=== PATIENT | female | born 1965 | race Caucasian/White ===

== ENCOUNTER 2018-08-25 13:45 | Emergency (ER) | payer MEDICAID, OTHER ==
[2018-08-25 14:11] VITALS: BP 131/85; PULSE 97; O2SAT 98
--- NOTE | 2018-08-25 14:21 | ERPHSYRPT ---
- History of Present Illness Time Seen by Provider: 08/25/18 14:15 Source: patient Exam Limitations: no limitations Patient Subjective Stated Complaint: pt reports rib injury in April resulting in 4 broken left ribs, states on 08/19 she reached over her grandchilds car seat and felt a "pop" and had severe pain. states she has left sided rib pain and is unable to sleep well or wear a bra. pt is concerned she has re injured her ribs. Triage Nursing Assessment: pt is aox3, pupils perrl, afebrile, resps easy and non labored, pt lung sounds are clear and equal throughout, radial pulses strong and equal, cap refill < 3 seconds, pt skin pink warm dry. no deformity noted to the left rib area. Physician History: 52 y/o white female presents with left side rib pain. pt was dx with left rib fx in Apr 2018. , pt lifted up child and felt a pop and severe pain. pt has had pain ever since. Timing/Duration: day(s) (6) Severity: mild Modifying Factors: Improves With: movement Associated Symptoms: denies symptoms Allergies/Adverse Reactions: hydromorphone Adverse Reaction (Verified 08/25/18 14:11) vomiting Hx Tetanus, Diphtheria Vaccination/Date Given: Yes Hx Influenza Vaccination/Date Given: No Hx Pneumococcal Vaccination/Date Given: No Immunizations Up to Date: Yes - Review of Systems Constitutional: No Symptoms Eyes: No Symptoms Ears, Nose, & Throat: No Symptoms Respiratory: No Symptoms Cardiac: No Symptoms Abdominal/Gastrointestinal: No Symptoms Genitourinary Symptoms: No Symptoms Musculoskeletal: Other (left ribs) Skin: No Symptoms Neurological: No Symptoms Psychological: No Symptoms Endocrine: No Symptoms Hematologic/Lymphatic: No Symptoms Immunological/Allergic: No Symptoms All Other Systems: Reviewed and Negative - Past Medical History Pertinent Past Medical History: Yes Neurological History: No Pertinent History ENT History: No Pertinent History Cardiac History: No Pertinent History Respiratory History: No Pertinent History Endocrine Medical History: No Pertinent History Musculoskeletal History: No Pertinent History GI Medical History: No Pertinent History History: No Pertinent History Psycho-Social History: No Pertinent History Female Reproductive Disorders: No Pertinent History, Endometriosis Other Medical History: seasonal allergies. swollen lymph nodes bilateral axilla - unknown cause - Past Surgical History Past Surgical History: Yes Neuro Surgical History: No Pertinent History Cardiac: No Pertinent History Respiratory: No Pertinent History Gastrointestinal: Hernia Repair Genitourinary: No Pertinent History Musculoskeletal: No Pertinent History Female Surgical History: Hysterectomy Other Surgical History: left breast lumpectomy - benign. colon polyps - benign. cryo surgery to cervix - stage 0 cervical cancer - Social History Smoking Status: Never smoker Drug Use: none Patient Lives Alone: Yes - Female History Hx Last Menstrual Period: hyst Hx Now: No - Nursing Vital Signs Nursing Vital Signs: Initial Vital Signs Temperature 98.3 F 08/25/18 13:55 Pulse Rate 97 H 08/25/18 13:55 Respiratory Rate 20 08/25/18 13:55 Blood Pressure 131/85 08/25/18 13:55 O2 Sat by Pulse Oximetry 98 08/25/18 13:55 Pain Scale Pain Intensity 10 - Physical Exam General Appearance: mild distress, alert, anxiety Eye Exam: PERRL/EOMI, eyes nml inspection Ears, Nose, Throat Exam: normal ENT inspection, moist mucous membranes Neck Exam: normal inspection, non-tender, supple Respiratory Exam: normal breath sounds, lungs clear, airway intact, other (rib tenderness), No respiratory distress, No rhonchi, No wheezing Cardiovascular Exam: regular rate/rhythm, normal heart sounds, normal peripheral pulses Pelvic Exam: not done Rectal Exam: not done Back Exam: normal inspection, normal range of motion, No CVA tenderness, No vertebral tenderness Extremity Exam: normal inspection, normal range of motion, No pelvis stable Neurologic Exam: alert, oriented x 3, cooperative, 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 Skin Exam: normal color, warm, dry Lymphatic Exam: No adenopathy SpO2 Interpretation: normal SpO2: 98 O2 Delivery: Room Air - Course Nursing assessment & vital signs reviewed: Yes Ordered Tests: Active Orders 24 hr Category Date Time Status CHEST 2 VIEWS (PA AND LAT) Stat Exams 08/25/18 14:19 Completed RIBS UNILATERAL Stat Exams 08/25/18 14:20 Completed Medication Summary Generic Name Dose Route Start Last Admin Trade Name Freq PRN Reason Stop Dose Admin Lorazepam 0.5 mg 08/25/18 15:17 Ativan 0.5 Mg PO 08/25/18 15:18 STAT ONE Ondansetron HCl 4 mg 08/25/18 15:16 Zofran Odt 4 Mg PO 08/25/18 15:17 STAT ONE Oxycodone/Acetaminophen 1 tab 08/25/18 15:16 Percocet Tablet 5/325mg PO 08/25/18 15:17 STAT STA Prednisone 10 mg 08/25/18 15:17 Deltasone 10 Mg PO 08/25/18 15:18 STAT ONE - Progress Progress: improved, pain not gone completely, re-examined Progress Note: 08/25/18 15:22 cxr- no acute process. left rib xray-healing old rib fx. no acuter fx Counseled pt/family regarding: diagnosis, need for follow-up, rad results - Departure Departure Disposition: Home Clinical Impression: Rib pain on left side Condition: Stable Critical Care Time: No Additional Instructions: follow up with primary doctor for further management of your pain. Prescriptions: Carisoprodol 350 mg [Soma 350 mg] 350 mg PO Q8H PRN PRN #10 tablet PRN Reason: Muscle Spasms Oxycodone HCl/Acetaminophen [Percocet 5-325 mg Tablet] 1 each PO Q8H PRN PRN # 10 tablet MDD 3 PRN Reason: Pain
--- NOTE | 2018-08-25 14:46 | XRAY ---
Indication: Pain. Comparison: June 15, 2018 from [facility]. 2 views of the left ribs demonstrates interval healing 4-10 rib fractures. No new bony, articular, or soft tissue abnormalities.
--- NOTE | 2018-08-25 14:48 | XRAY ---
Indication: Left rib pain. Comparison: Outside exam from [facility] dated April 23, 2018. PA/lateral chest again demonstrates normal heart and lungs. Bony thorax intact with healing left rib fractures reported separately.
[2018-08-25] MEDS ORDERED: PERCOCET TABLET 5/325MG PO STA (15:16)
[2018-08-25] MEDS ORDERED: ZOFRAN ODT 4 MG PO ONE (15:16)
[2018-08-25] MEDS ORDERED: DELTASONE 10 MG PO ONE (15:17)
[2018-08-25] MEDS ORDERED: Ativan 0.5 MG PO ONE (15:17)
[2018-08-25] MEDS ORDERED: DELTASONE 20 MG ONE (15:39)
[2018-08-25] MEDS ORDERED: ZOFRAN ODT 4 MG ONE (15:39)
[2018-08-25] MEDS ORDERED: PERCOCET TABLET 5/325MG ONE (15:39)
[2018-08-25] MEDS ORDERED: Ativan 1 MG ONE (15:40)
== END 2018-08-25 16:38 | disposition home or self-care (01) ==
LOC: ED 13:45
DX: R07.81 Pleurodynia (principal); X50.9XXA Other and unspecified overexertion or strenuous movements or postures, initial encounter
CPT/HCPCS: 71046; 71100; 99283; Q0162; A9270-GY

== ENCOUNTER 2019-09-12 10:11 | Day surgery (SDC) | payer OTHER ==
--- NOTE | 2019-09-12 09:09 | HP ---
DATE OF SURGERY: 09/12/2019 HISTORY OF PRESENT ILLNESS: The patient is a 53 year-old painful nodule increasing aches and pains right axilla, had some problems and was too painful to wear a bra according to the patient. She had CT scan did not show any obvious abnormalities in the groin. She had mammograms with benign findings, no obvious suspicious masses or adenopathy noted. She had some unchanged area of simple cyst and some unchanged area felt to be benign fibroadenoma that were unchanged. She had negative bilateral axillary ultrasound in the past. PAST MEDICAL HISTORY: Cervical cancer with cryotherapy in the past. Rheumatoid arthritis. Acid reflux. Anxiety. Asthma. Bipolar. Depression. Endometriosis. 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 PAST SURGICAL HISTORY: Right inguinal hernia repair in the past. She had hysterectomy and tubal in the past. Colonoscopy in the past. MEDICATIONS: Testosterone. Albuterol. Alendronate. Paroxetine. Multivitamin. Lamictal. Clonazepam. Vitamin D3. Calcium carbonate. Wellbutrin. Biotin. Adderall. Venlafaxine. ALLERGIES: DILAUDID. FAMILY HISTORY: Cancer. REVIEW OF SYSTEMS: Fourteen systems reviewed per admission assessment. No chest pain or palpitations. Other systems negative or noncontributory as above and per preadmission questionnaire. PHYSICAL EXAMINATION: GENERAL: No acute distress. HEENT: Sclerae nonicteric. NECK: No JVD. CHEST: Equal excursion, nonlabored breathing. CVS: Regular rate and rhythm. ABDOMEN: Soft. EXTREMITIES: No significant edema. NEURO: Alert, oriented, moving extremities symmetrically. No gross motor deficits noted. IMPRESSION: She has a large right axillary soft tissue mass whether lipoma or excessive breast tissue or other etiology is unclear that is causing increasing symptomatic aches and pains. She is offered excision. She understands general risk bleeding or infection, risk of hematoma or seroma formation or wound dehiscence possibly requiring packing. She understands she could have aches and pains, burning or numbness from the surgery itself that could be detention or chronic in nature. It may not bother her more than the current aches or pains. She understands if lipomatous density she could have other areas adjacent to or elsewhere down the road once she heals this wound.
[2019-09-12] MEDS ORDERED: Zemuron 100 MG/10 ML IV ONE (10:12)
[2019-09-12] MEDS ORDERED: KEFZOL 1 GM IV ONE (10:12)
[2019-09-12] MEDS ORDERED: Sensorcaine 0.25% 10 ML ONE (10:20)
[2019-09-12] MEDS ORDERED: Lactated Ringers 1,000 ML IV ONE ×2 (10:20→10:37)
[2019-09-12] MEDS ORDERED: Lactated Ringers 1,000 ML IV SCH (10:30)
[2019-09-12] MEDS ORDERED: TORAdol 30 mg Injection ONE ×2 (11:52→13:23)
[2019-09-12] MEDS ORDERED: DIPRIVAN 200 MG/20 ML IV ONE (11:52)
[2019-09-12] MEDS ORDERED: Zemuron 100 MG/10 ML ONE (11:52)
[2019-09-12] MEDS ORDERED: Zofran 4 MG/2 ML VIAL ONE (11:52)
[2019-09-12] MEDS ORDERED: Xylocaine-Mpf 2% 5 Ml Vial ONE (11:52)
[2019-09-12] MEDS ORDERED: Decadron 4 MG INJ ONE (11:52)
[2019-09-12] MEDS ORDERED: BRIDION 200MG/2ML IV ONE (11:52)
[2019-09-12] MEDS ORDERED: SUBLIMAZE 100 MCG/2 ML ONE ×2 (11:52→13:01)
[2019-09-12 14:12] VITALS: BP 135/80; PULSE 84; O2SAT 94
--- NOTE | 2019-09-13 11:18 | OP ---
SURGERY DATE/TIME: 09/12/2019 1154 PREOPERATIVE DIAGNOSIS: Enlarging symptomatic painful subcutaneous mass right axilla. POSTOPERATIVE DIAGNOSES: Enlarging symptomatic painful subcutaneous mass right axilla (lipomatous density). PROCEDURE: Excisional biopsy of symptomatic painful enlarging 10 cm lipomatous subcutaneous mass right axilla. SURGEON: Dr. Mendez Teixeira. ANESTHESIA: General. ESTIMATED BLOOD LOSS: Minimal. INDICATIONS: As noted above. She has enlarging painful subcutaneous mass unclear whether lipoma versus other accessory breast density or other issues that is causing increasing pain and enlarging in size. It was felt she would benefit from excision. Risks and benefits explained in detail including the fact that she is concerned about having excess skin, we informed that we would remove the ellipse of skin with the excision which would necessitate a longer incision. She understands the general risk of bleeding, infection, aches, pains, burning, numbness, risk of lymphedema, risk of burning or numbness possibly long-term or chronic in nature. Small risk of nerve irritation or scar formation, risk of weakness of shoulder or scapula possibly termination clerk or chronic in nature. General risk of hematoma, seroma, lymphedema, lymphocele formation but not limited to as well as possibility she could get other fatty density adjacent to or elsewhere on her body but not limited to as well as the risk of anesthesia, deep venous thrombosis, pulmonary embolism or pneumonia. Consent had been obtained. Questions had been answered in the preoperative area. The patient understood would have a longer incision if she wanted more of the skin excised over the top of this. Consent obtained. The site had been confirmed and marked with the patient. DESCRIPTION OF PROCEDURE AND FINDINGS: General anesthesia induced. The right axilla was prepped and draped in usual sterile fashion. After official time out and no disagreement with planned procedure, in a spindle-shaped fashion including the redundant skin over the top, dissection was carried down through the subcu. The skin subcu flaps mobilized around the subcutaneous lipomatous density around to the level of the axillary fascia. Small, little oozing bicycle inspector vein controlled with Ligaclips. This lipomatous density was dissected off the underlying fascia. It measured about 10 cm in size consistent with lipomatous density, final path pending. Good hemostasis noted. The wound irrigated out. Given the large potential space the JULIAN drain is placed through inferior stab wound, placed to bulb suction secured with PDS suture. The wound is then closed in layers with deep superficial subcu closed with 3-0 Vicryl trying to tack it down to the underlying fascia. The superficial subcu closed with 3-0 Vicryl, skin closed with 4-0 Vicryl, some Dermabond couple areas placed and also sterile dressing and pressure dressing. The patient tolerated the procedure well. There were no immediate complications. Findings discussed with the family out in the waiting area.
== END 2019-09-12 13:40 | disposition home or self-care (01) ==
LOC: SDC 10:11
PROVIDERS: ATTEND Surgery
DX: D17.21 Benign lipomatous neoplasm of skin and subcutaneous tissue of right arm (principal); Z85.41 Personal history of malignant neoplasm of cervix uteri; Z79.899 Other long term (current) drug therapy
CPT/HCPCS: 88304; J0690; J1100; J1885; J2405; J2704; J3010

== ENCOUNTER 2020-03-02 19:16 | Emergency (ER) | payer OTHER ==
[2020-03-02] MEDS ORDERED: TYLENOL EXTRA STRENGTH 500 MG PO STA (19:37)
[2020-03-02] MEDS ORDERED: MOTRIN 600 MG PO ONE (19:37)
[2020-03-02 19:41] VITALS: BP 139/86; PULSE 94; O2SAT 98
[2020-03-02] MEDS ORDERED: MOTRIN 600 MG ONE (19:48)
[2020-03-02] MEDS ORDERED: TYLENOL EXTRA STRENGTH 500 MG ONE (19:48)
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
== END 2020-03-02 21:03 | disposition home or self-care (01) ==
LOC: ED 19:16
DX: M25.512 Pain in left shoulder (principal); R07.81 Pleurodynia; V89.2XXA Person injured in unspecified motor-vehicle accident, traffic, initial encounter; Z79.899 Other long term (current) drug therapy
CPT/HCPCS: 71046; 73030; 99283; A9270-GY

== ENCOUNTER 2021-01-01 13:15 | Emergency (ER) | payer OTHER ==
--- NOTE | 2021-01-01 13:20 | ERPHSYRPT ---
- History of Present Illness Time Seen by Provider: 01/01/21 13:19 Source: patient Physician History: This is a 55-year-old white female who is transgendering into a male and prefers to be called Javad and presents with 2 to 3-day history of right facial numbness, numbness and trembling of his hands and painful sites on his head. He denies trauma. He denies new medications. He denies illicit drug use. There is been no specific stressors in his life except for in the last 2 weeks he has been trying to get a machine to aid in his sleep apnea. Patient has also not had his Klonopin for his anxiety issues. 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 Patient denies shortness of breath. He denies chest pain. He denies abdominal pain. He has had no nausea vomiting or diarrhea. Patient has a history of gastroesophageal reflux disease but has been off his medication for a month. He has history of ADD H, bipolar issues and depression. Timing/Duration: day(s) (2 to 3 days) Severity: mild (To moderate) Modifying Factors: Improves With: nothing Associated Symptoms: denies symptoms Allergies/Adverse Reactions: hydromorphone Adverse Reaction (Verified 03/02/20 19:21) Vomiting vomiting Home Medications: Albuterol 2 puff IH Q6HPRN PRN 09/02/19 [History] Alendronate Sodium 70 mg [Fosamax 70 MG] 70 mg PO Q7D@0600 09/02/19 [History] Calcium Carbonate/Vitamin D3 [Calcium 600Mg-D3 400 Unit Sfgl] 1 each PO BID [History] Diphenhydramine HCl 25 mg [Benadryl 25 mg Capsule] 25 mg PO Q4H PRN PRN 09/02/19 [History] Famotidine 20 mg [Pepcid 20 MG] 20 mg PO DAILY PRN PRN 09/02/19 [History] Hydroxyzine HCl 50 mg/ml [Vistaril 50 MG/ML] 50 mg IM TIDPRN PRN 09/02/19 [History] Lamotrigine [Lamictal] 150 mg PO BID 09/02/19 [History] Multivitamin [Multivitamins] 1 each PO DAILY 09/02/19 [History] Plecanatide [Trulance] 3 mg PO DAILY 09/02/19 [History] Testosterone Cypionate [Depo-Testosterone] 200 mg IM WEEKLY 09/02/19 [History] Venlafaxine HCl ER 75 mg [Effexor XR 75 MG] 75 mg PO DAILY 09/02/19 [History] buPROPion HCL [Bupropion Xl] 150 mg PO DAILY 09/02/19 [History] clonazePAM [Clonazepam] 1 mg PO TID 09/02/19 [History] Hx Tetanus, Diphtheria Vaccination/Date Given: Yes Hx Influenza Vaccination/Date Given: No Hx Pneumococcal Vaccination/Date Given: No Travel Risk - International Travel Have you traveled outside of the country in past 3 weeks: No - Coronavirus Screening Are you exhibiting any of the following symptoms?: No Close contact with a COVID-19 positive Pt in past 14-21 Days: No - Review of Systems Constitutional: No Symptoms Eyes: No Symptoms Ears, Nose, & Throat: No Symptoms Respiratory: No Symptoms Cardiac: No Symptoms Abdominal/Gastrointestinal: No Symptoms Genitourinary Symptoms: No Symptoms Musculoskeletal: No Symptoms Skin: No Symptoms Neurological: Parasthesia (Right side of his face and bilateral hands), Tremors (Bilateral hands) Psychological: Anxiety, Depression Endocrine: No Symptoms Hematologic/Lymphatic: No Symptoms Immunological/Allergic: No Symptoms All Other Systems: Reviewed and Negative - Past Medical History Pertinent Past Medical History: Yes Neurological History: No Pertinent History ENT History: No Pertinent History Cardiac History: No Pertinent History Respiratory History: Asthma Endocrine Medical History: No Pertinent History Musculoskeletal History: No Pertinent History GI Medical History: GERD History: No Pertinent History Psycho-Social History: Anxiety, Attention Deficit Disorder, Bipolar, Depression Female Reproductive Disorders: Cervical Cancer, Endometriosis Other Medical History: seasonal allergies. swollen lymph nodes bilateral axilla - unknown cause - Past Surgical History Past Surgical History: Yes Neuro Surgical History: No Pertinent History Cardiac: No Pertinent History Respiratory: No Pertinent History Gastrointestinal: Hernia Repair Genitourinary: No Pertinent History Musculoskeletal: No Pertinent History Female Surgical History: Hysterectomy, Tubal Ligation Other Surgical History: left breast lumpectomy - benign. colon polyps - benign. cryo surgery to cervix - stage 0 cervical cancer - Social History Smoking Status: Never smoker Exposure to second hand smoke: No Drug Use: none Patient Lives Alone: No - Nursing Vital Signs Nursing Vital Signs: Initial Vital Signs Temperature 97.8 F 01/01/21 13:22 Pulse Rate 99 H 01/01/21 13:22 Respiratory Rate 20 01/01/21 13:22 Blood Pressure 141/91 01/01/21 13:22 O2 Sat by Pulse Oximetry 99 01/01/21 13:22 Pain Scale Pain Intensity 0 - Physical Exam General Appearance: no apparent distress, alert, anxiety Eye Exam: PERRL/EOMI, eyes nml inspection, other (Bilateral eyelids close well. There is no evidence of classic Aldridge's palsy findings on either eyelid) Ears, Nose, Throat Exam: normal ENT inspection, moist mucous membranes, other (No facial droop noted) Neck Exam: normal inspection Respiratory Exam: normal breath sounds, lungs clear, airway intact, No chest tenderness, No respiratory distress Cardiovascular Exam: regular rate/rhythm, normal heart sounds, normal peripheral pulses Gastrointestinal/Abdomen Exam: soft, normal bowel sounds, No tenderness Pelvic Exam: not done Rectal Exam: not done Back Exam: normal inspection, normal range of motion, No CVA tenderness, No v ertebral tenderness Extremity Exam: normal inspection, normal range of motion, pelvis stable Neurologic Exam: alert, oriented x 3, cooperative, 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, nml cerebellar function, nml station & gait, sensation nml, No motor weakness, No facial droop, No slurred speech Skin Exam: normal color, warm, dry Lymphatic Exam: No adenopathy SpO2 Interpretation: normal O2 Delivery: Room Air - Course Nursing assessment & vital signs reviewed: Yes Ordered Tests: Active Orders 24 hr Category Date Time Status NPO (ED) STAT Care 01/01/21 13:47 Active HEAD WITHOUT CONTRAST [CT] Stat Exams 01/01/21 13:47 Completed CBC W DIFF Stat Lab 01/01/21 14:00 Completed CMP Stat Lab 01/01/21 14:00 Completed UA W/RFX UR CULTURE Stat Lab 01/01/21 15:25 Completed Medication Summary Discontinued Medications Generic Name Dose Route Start Last Admin Trade Name Freq PRN Reason Stop Dose Admin Lorazepam 1 mg 01/01/21 14:46 01/01/21 14:52 Ativan 2 Mg/1 Ml Vial IV 01/01/21 14:47 1 mg STAT ONE Administration Lorazepam Confirm 01/01/21 14:51 Ativan 2 Mg/1 Ml Vial Administered 01/01/21 14:52 Dose 2 mg .ROUTE .STK-MED ONE Lab/Rad Data: Laboratory Result Diagrams 01/01/21 14:00 01/01/21 14:00 Laboratory Results 01/01/21 01/01/21 01/01/21 Range/Units 15:25 14:00 14:00 WBC 7.1 (4.0-10.5) K/mm3 RBC 5.96 H (4.1-5.4) M/mm3 Hgb 17.2 H (12.0-16.0) gm/dl Hct 51.8 H (35-47) % MCV 86.9 (78-100) fl MCH 28.9 (26-32) pg MCHC 33.2 (32-36) g/dl RDW 13.7 (11.5-14.0) % Plt Count 290 (150-450) K/mm3 MPV 9.1 (7.5-11.0) fl Gran % 66.8 H (36.0-66.0) % Eos # (Auto) 0.36 (0-0.5) Absolute Lymphs (auto) 1.49 (1.0-4.6) Absolute Monos (auto) 0.50 (0.0-1.3) Lymphocytes % 21.0 L (24.0-44.0) % Monocytes % 7.0 (0.0-12.0) % Eosinophils % 5.1 H (0.00-5.0) % Basophils % 0.1 (0.0-0.4) % Absolute Granulocytes 4.75 (1.4-6.9) Basophils # 0.01 (0-0.4) Sodium 137 (137-145) mmol/L Potassium 4.4 (3.5-5.1) mmol/L Chloride 99 (98-107) mmol/L Carbon Dioxide 28 (22-30) mmol/L Anion Gap 15.2 H (5-15) MEQ/L BUN 18 H (7-17) mg/dL Creatinine 1.09 H (0.52-1.04) mg/dL Estimated GFR 55.8 ML/MIN Glucose 106 (74-106) mg/dL Calcium 9.1 (8.4-10.2) mg/dL Total Bilirubin 0.40 (0.2-1.3) mg/dL AST 34 (14-36) U/L ALT 38 H (0-35) U/L Alkaline Phosphatase 101 (38-126) U/L Serum Total Protein 8.0 (6.3-8.2) g/dL Albumin 4.7 (3.5-5.0) g/dL Urine Color YELLOW (YELLOW) Urine Appearance CLEAR (CLEAR) Urine pH 6.0 (5-6) Ur Specific [place] 1.009 (1.005-1.025) Urine Protein NEGATIVE (Negative) Urine Ketones NEGATIVE (NEGATIVE) Urine Blood SMALL (0-5) Hany/ul Urine Nitrite NEGATIVE (NEGATIVE) Urine Bilirubin NEGATIVE (NEGATIVE) Urine Urobilinogen NEGATIVE (0-1) mg/dL Ur Leukocyte Esterase SMALL (NEGATIVE) Urine WBC (Auto) 0-2 (0-5) /HPF Urine RBC (Auto) 0-2 (0-2) /HPF U Epithel Cells (Auto) NONE (FEW) /HPF Urine Bacteria (Auto) NONE (NEGATIVE) /HPF Urine Culture Reflexed NO (NO) Urine Glucose NEGATIVE (NEGATIVE) mg/dL - Progress Progress: improved Progress Note: 01/01/21 16:05 CAT scan of the head without contrast is normal Counseled pt/family regarding: lab results, diagnosis, need for follow-up, rad results - Departure Departure Disposition: Home Clinical Impression: Numbness, Anxiety Condition: Stable Critical Care Time: No Referrals: VIKTOR CALHOUN MD [Primary Care Provider] - Additional Instructions: Drink plenty of fluids. Take your medications as prescribed. Follow-up with your primary care physician tomorrow to fill any outstanding prescriptions.
[2021-01-01 14:06] LABS: Absolute Neutrophil Ct (ANC) 4.75 (1.4-6.9); BASOPHIL % 0.1 % (0.0-0.4); Basophil (Absolute #) 0.01 (0-0.4); Eosinophil % 5.1 % (0.00-5.0); Eosinophil (Absolute #) 0.36 (0-0.5); Hematocrit 51.8 % (35-47); Hemoglobin 17.2 gm/dl (12.0-16.0); Lymphocyte (Absolute #) 1.49 (1.0-4.6); Mean Cell Volume 86.9 fl (78-100); Mean Corpuscular Hemoglobin 28.9 pg (26-32); Mean Corpuscular Hgb Concent. 33.2 g/dl (32-36); Mean Platelet Volume 9.1 fl (7.5-11.0); Neutrophil % 66.8 % (36.0-66.0); Platelet Count 290 K/mm3 (150-450); Red Blood Count 5.96 M/mm3 (4.1-5.4); Red Cell Distribution Width 13.7 % (11.5-14.0); White Blood Count 7.1 K/mm3 (4.0-10.5)
[2021-01-01 14:27] LABS: ALBUMIN 4.7 g/dL (3.5-5.0); ANION GAP 15.2 MEQ/L (5-15); BILIRUBIN,TOTAL 0.4 mg/dL (0.2-1.3); Calcium 9.1 mg/dL (8.4-10.2); Creatinine 1 1.09 mg/dL (0.52-1.04); EST GLOMERULAR FILTRATION RATE 55.8 ML/MIN; Potassium 4.4 mmol/L (3.5-5.1)
--- NOTE | 2021-01-01 14:42 | XRAY ---
Indication: Right facial numbness. Bilateral ear pain. History of Aldridge's palsy. Multiple contiguous axial images obtained through the head without contrast. Comparison: None Normal appearing brain parenchyma, ventricles, and bony calvarium for patient's age. Visualized paranasal sinuses and mastoid air cells are clear. Impression: Normal CT head without contrast exam.
[2021-01-01] MEDS ORDERED: Ativan 2 MG/1 ML VIAL IV ONE (14:46)
[2021-01-01] MEDS ORDERED: Ativan 2 MG/1 ML VIAL ONE (14:51)
[2021-01-01 16:01] LABS: Appearance CLEAR (CLEAR); Bilirubin NEGATIVE (NEGATIVE); Blood SMALL Ery/ul (0-5); Glucose NEGATIVE (NEGATIVE); Ketones NEGATIVE (NEGATIVE); Leukocyte Esterase SMALL (NEGATIVE); Nitrite NEGATIVE (NEGATIVE); Protein,Urine Dip NEGATIVE (Negative); RBC 0-2 /HPF (0-2); Specific Gravity 1.009 (1.005-1.025); Urobilinogen NEGATIVE mg/dL (0-1); WBC 0-2 /HPF (0-5)
[2021-01-01 16:07] VITALS: BP 131/87; PULSE 86; O2SAT 97
== END 2021-01-01 16:20 | disposition home or self-care (01) ==
LOC: ED 13:15
DX: R20.2 Paresthesia of skin (principal); F41.9 Anxiety disorder, unspecified; Z79.899 Other long term (current) drug therapy; R25.1 Tremor, unspecified
CPT/HCPCS: 36415; 70450; 80053; 81001; 85025; 96374; 99284; J2060

== ENCOUNTER 2021-09-02 18:44 | Emergency (ER) | payer OTHER ==
--- NOTE | 2021-09-02 18:46 | ERPHSYRPT ---
- History of Present Illness Time Seen by Provider: 09/02/21 18:45 Historian: patient Physician History: This is a 55-year-old obese white male who is in the process of transitioning from a female and presents with multiple complaints including body aches and pains, vomiting yesterday, abdominal discomfort that is generalized, that began yesterday as well. Patient's daughter has been diagnosed with COVID-19 infection. Patient states she has had a fever but it was not measured. He does not have a cough. Patient is taking 3 antiseizure medications for psychiatric issues. There was a question of a seizure episode last week. Patient does have a history of bipolar disorder, depression, anxiety, tremors, and paresthesias Timing/Duration: yesterday Activities at Onset: none Abdominal Pain Onset Location: generalized abdomen Pain Radiation: no radiation Severity of Pain-Max: mild Severity of Pain-Current: mild Modifying Factors: Improves With: vomiting Associated Symptoms: nausea, vomiting Previous symptoms: no prior history Allergies/Adverse Reactions: hydromorphone Adverse Reaction (Verified 03/02/20 19:21) Vomiting vomiting Home Medications: Albuterol 2 puff IH Q6HPRN PRN 09/02/19 [History] Alendronate Sodium 70 mg [Fosamax 70 MG] 70 mg PO Q7D@0600 09/02/19 [History] Calcium Carbonate/Vitamin D3 [Calcium 600Mg-D3 400 Unit Sfgl] 1 each PO BID 09/02/19 [History] Diphenhydramine HCl 25 mg [Benadryl 25 mg Capsule] 25 mg PO Q4H PRN PRN 09/02/19 [History] Famotidine 20 mg [Pepcid 20 MG] 20 mg PO DAILY PRN PRN 09/02/19 [History] Hydroxyzine HCl 50 mg/ml [Vistaril 50 MG/ML] 50 mg IM TIDPRN PRN 09/02/19 [History] Multivitamin [Multivitamins] 1 each PO DAILY 09/02/19 [History] Plecanatide [Trulance] 3 mg PO DAILY 09/02/19 [History] Testosterone Cypionate [Depo-Testosterone] 200 mg IM WEEKLY 09/02/19 [History] Venlafaxine HCl ER 75 mg [Effexor XR 75 MG] 75 mg PO DAILY 09/02/19 [History] buPROPion HCL [Bupropion Xl] 150 mg PO DAILY 09/02/19 [History] clonazePAM [Clonazepam] 1 mg PO TID 09/02/19 [History] lamoTRIgine [Lamictal] 150 mg PO BID 09/02/19 [History] Hx Tetanus, Diphtheria Vaccination/Date Given: Yes Hx Influenza Vaccination/Date Given: No Hx Pneumococcal Vaccination/Date Given: No Travel Risk - International Travel Have you traveled outside of the country in past 3 weeks: No - Coronavirus Screening Are you exhibiting any of the following symptoms?: Yes Symptoms: Fever, Headaches/Body Aches/Fatigue Close contact with a COVID-19 positive Pt in past 14-21 Days: No - Vaccine Status Have you recieved a Covid-19 vaccination: No - Review of Systems Constitutional: Fever Eyes: No Symptoms Ears, Nose, & Throat: No Symptoms Respiratory: No Symptoms Cardiac: No Symptoms Abdominal/Gastrointestinal: Abdominal Pain, Nausea, Vomiting Genitourinary Symptoms: No Symptoms Musculoskeletal: Arthralgias, Myalgias Skin: No Symptoms Neurological: No Symptoms Psychological: No Symptoms Endocrine: No Symptoms Hematologic/Lymphatic: No Symptoms Immunological/Allergic: No Symptoms All Other Systems: Reviewed and Negative - Past Medical History Pertinent Past Medical History: Yes Neurological History: No Pertinent History ENT History: No Pertinent History Cardiac History: No Pertinent History Respiratory History: Asthma Endocrine Medical History: No Pertinent History Musculoskeletal History: No Pertinent History GI Medical History: GERD History: No Pertinent History Psycho-Social History: Anxiety, Attention Deficit Disorder, Bipolar, Depression Female Reproductive Disorders: Cervical Cancer, Endometriosis Other Medical History: seasonal allergies. swollen lymph nodes bilateral axilla - unknown cause - Past Surgical History Past Surgical History: Yes Neuro Surgical History: No Pertinent History Cardiac: No Pertinent History Respiratory: No Pertinent History Gastrointestinal: Hernia Repair Genitourinary: No Pertinent History Musculoskeletal: No Pertinent History Female Surgical History: Hysterectomy, Tubal Ligation Other Surgical History: left breast lumpectomy - benign. colon polyps - benign. cryo surgery to cervix - stage 0 cervical cancer - Social History Smoking Status: Never smoker Exposure to second hand smoke: No Drug Use: none Patient Lives Alone: No - Nursing Vital Signs Nursing Vital Signs: Initial Vital Signs Temperature 97.3 F 09/02/21 18:51 Pulse Rate 109 H 09/02/21 18:51 Respiratory Rate 20 09/02/21 18:51 Blood Pressure 112/79 09/02/21 18:51 O2 Sat by Pulse Oximetry 95 09/02/21 18:51 Pain Scale Pain Intensity 8 - Physical Exam General Appearance: no apparent distress, alert, anxiety, obese Eye Exam: PERRL/EOMI, eyes nml inspection Ears, Nose, Throat Exam: normal ENT inspection, moist mucous membranes Neck Exam: normal inspection, non-tender, supple, full range of motion Respiratory Exam: normal breath sounds, lungs clear, airway intact, No chest tenderness, No respiratory distress Cardiovascular Exam: tachycardia Gastrointestinal/Abdomen Exam: soft, normal bowel sounds, tenderness (Mild diffuse), No guarding, No rebound Pelvic Exam: not done Rectal Exam: not done Back Exam: normal inspection, normal range of motion, No CVA tenderness, No vertebral tenderness Extremity Exam: normal inspection, normal range of motion, pelvis stable Neurologic Exam: alert, oriented x 3, cooperative, 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, normal mood/affect, nml cerebellar function, nml station & gait, sensation nml Skin Exam: normal color, warm, dry Lymphatic Exam: No adenopathy SpO2 Interpretation: normal O2 Delivery: Room Air Ordered Tests: Active Orders 24 hr Category Date Time Status IV Insertion STAT Care 09/02/21 19:17 Active AMYLASE Stat Lab 09/02/21 19:00 Completed BLOOD CULTURE Stat Lab 09/02/21 19:50 Received CBC W DIFF Stat Lab 09/02/21 19:00 Completed CMP Stat Lab 09/02/21 19:00 Completed CULTURE,URINE Stat Lab 09/02/21 19:21 Received LIPASE Stat Lab 09/02/21 19:00 Completed [place] Screen Stat Lab 09/02/21 19:50 Completed UA W/RFX CULTURE Stat Lab 09/02/21 19:21 Completed Medication Summary Generic Name Dose Route Start Last Admin Trade Name Freq PRN Reason Stop Dose Admin Sodium Chloride 1,000 mls @ 999 mls/hr 09/02/21 20:25 09/02/21 20:34 Sodium Chloride 0.9% 1000 Ml IV 09/02/21 21:25 999 mls/hr .Q1H1M STA Administration Ceftriaxone Sodium/Dextrose 1 g in 50 mls @ 100 mls/hr 09/02/21 20:26 0 09/02/21 20:35 Rocephin 1 Gm-D5w 50 Ml Bag IV 09/02/21 20:55 100 ml/hr STAT STA 100 mls/hr Administration Discontinued Medications Generic Name Dose Route Start Last Admin Trade Name Shanita PRN Reason Stop Dose Admin Sodium Chloride 1,000 mls @ 999 mls/hr 09/02/21 19:17 09/02/21 20:24 Sodium Chloride 0.9% 1000 Ml IV 09/02/21 20:17 Infused .Q1H1M STA Infusion Sodium Chloride Confirm 09/02/21 19:20 Sodium Chloride 0.9% 1000 Ml Administered 09/02/21 19:21 Dose 1,000 mls @ ud .ROUTE .STK-MED ONE Sodium Chloride Confirm 09/02/21 20:30 Sodium Chloride 0.9% 1000 Ml Administered 09/02/21 20:31 Dose 1,000 mls @ ud .ROUTE .STK-MED ONE Ceftriaxone Sodium/Dextrose Confirm 09/02/21 20:30 Rocephin 1 Gm-D5w 50 Ml Bag Administered 09/02/21 20:31 Dose 1 g in 50 mls @ ud IV .STK-MED ONE Levofloxacin 500 mg 09/02/21 20:26 09/02/21 20:35 Levofloxacin 500 Mg Tablet PO 09/02/21 20:27 500 mg STAT ONE Administration Levofloxacin Confirm 09/02/21 20:30 Levofloxacin 500 Mg Tablet Administered 09/02/21 20:31 Dose 500 mg .ROUTE .STK-MED ONE Morphine Sulfate 4 mg 09/02/21 20:27 09/02/21 20:35 Morphine Sulfate 4 Mg/Ml Injection IV 09/02/21 20:28 4 mg STAT ONE Administration Morphine Sulfate Confirm 09/02/21 20:30 Morphine Sulfate 4 Mg/Ml Injection Administered 09/02/21 20:31 Dose 4 mg .ROUTE .STK-MED ONE Ondansetron HCl 4 mg 09/02/21 19:17 09/02/21 19:23 Ondansetron Hcl 4 Mg/2 Ml Vial IV 09/02/21 19:18 4 mg STAT ONE Administration Ondansetron HCl Confirm 09/02/21 19:20 Ondansetron Hcl 4 Mg/2 Ml Vial Administered 09/02/21 19:21 Dose 4 mg .ROUTE .STK-MED ONE Pantoprazole Sodium 40 mg 09/02/21 19:17 09/02/21 19:23 Pantoprazole 40 Mg Vial IV 09/02/21 19:18 40 mg STAT ONE Administration Pantoprazole Sodium Confirm 09/02/21 19:20 Pantoprazole 40 Mg Vial Administered 09/02/21 19:21 Dose 40 mg IV .STK-MED ONE Lab/Rad Data: Laboratory Result Diagrams 09/02/21 19:00 09/02/21 19:00 Laboratory Results 09/02/21 09/02/21 09/02/21 Range/Units 19:50 19:50 19:50 WBC (4.0-10.5) x10^3/uL RBC (4.1-5.4) x10^6/uL Hgb (12.0-16.0) g/dL Hct (35-47) % MCV (78-100) fL MCH (26-32) pg MCHC (32-36) g/dL RDW (11.5-14.0) % Plt Count (150-450) x10^3/uL MPV (7.5-11.0) fL Gran % (36.0-66.0) % Immature Gran % (Auto) (0.00-0.4) % Nucleat RBC Rel Count (0.00-0.1) % Eos # (Auto) (0-0.5) x10^3/uL Immature Gran # (Auto) (0.00-0.03) x10^3u/L Absolute Lymphs (auto) (1.0-4.6) x10^3/uL Absolute Monos (auto) (0.0-1.3) x10^3/uL Absolute Nucleated RBC (0.00-0.01) x10^3u/L Lymphocytes % (24.0-44.0) % Monocytes % (0.0-12.0) % Eosinophils % (0.00-5.0) % Basophils % (0.0-0.4) % Absolute Granulocytes (1.4-6.9) x10^3/uL Basophils # (0-0.4) x10^3/uL Sodium (137-145) mmol/L Potassium (3.5-5.1) mmol/L Chloride (98-107) mmol/L Carbon Dioxide (22-30) mmol/L Anion Gap (5-15) MEQ/L BUN (7-17) mg/dL Creatinine (0.52-1.04) mg/dL Estimated GFR ML/MIN Glucose (74-106) mg/dL Calcium (8.4-10.2) mg/dL Total Bilirubin (0.2-1.3) mg/dL AST (14-36) U/L ALT (0-35) U/L Alkaline Phosphatase (38-126) U/L Serum Total Protein (6.3-8.2) g/dL Albumin (3.5-5.0) g/dL Amylase (30-110) U/L Lipase (23-300) U/L Urinalys Dipstick Clnc Urine Color (YELLOW) Urine Appearance (CLEAR) Urine pH (5-6) Ur Specific [place] (1.005-1.025) POC Urine Protein Conf (Negative) Urine Ketones (NEGATIVE) Urine Nitrite (NEGATIVE) Urine Bilirubin (NEGATIVE) Urine Urobilinogen (0-1) mg/dL Urine Leukocytes (NEGATIVE) Urine WBC (Auto) (0-5) /HPF Urine RBC (Auto) (0-2) /HPF U Epithel Cells (Auto) (FEW) /HPF Urine Bacteria (Auto) (NEGATIVE) /HPF Urine RBC (0-5) Hany/ul Urine Mucus (Auto) (NEGATIVE) /HPF Ur Culture Indicated? Urine Glucose (NEGATIVE) mg/dL Monoscreen NEGATIVE (Negative) Influenza Type A Ag NEGATIVE (NEGATIVE) Influenza Type B Ag NEGATIVE (NEGATIVE) RSV (PCR) NEGATIVE (Negative) SARS-CoV-2 (PCR) NEGATIVE (NEGATIVE) Group A Strep Antibody NOT DETECTED (NEGATIVE) 09/02/21 09/02/21 09/02/21 Range/Units 19:21 19:00 19:00 WBC 10.3 (4.0-10.5) x10^3/uL RBC 6.15 H (4.1-5.4) x10^6/uL Hgb 17.8 H (12.0-16.0) g/dL Hct 53.6 H (35-47) % MCV 87.2 (78-100) fL MCH 28.9 (26-32) pg MCHC 33.2 (32-36) g/dL RDW 13.1 (11.5-14.0) % Plt Count 305 (150-450) x10^3/uL MPV 9.1 (7.5-11.0) fL Gran % 80.2 H (36.0-66.0) % Immature Gran % (Auto) 0.2 (0.00-0.4) % Nucleat RBC Rel Count 0.0 (0.00-0.1) % Eos # (Auto) 0.11 (0-0.5) x10^3/uL Immature Gran # (Auto) 0.02 (0.00-0.03) x10^3u/L Absolute Lymphs (auto) 1.34 (1.0-4.6) x10^3/uL Absolute Monos (auto) 0.53 (0.0-1.3) x10^3/uL Absolute Nucleated RBC 0.00 (0.00-0.01) x10^3u/L Lymphocytes % 13.0 L (24.0-44.0) % Monocytes % 5.2 (0.0-12.0) % Eosinophils % 1.1 (0.00-5.0) % Basophils % 0.3 (0.0-0.4) % Absolute Granulocytes 8.24 H (1.4-6.9) x10^3/uL Basophils # 0.03 (0-0.4) x10^3/uL Sodium 138 (137-145) mmol/L Potassium 4.4 (3.5-5.1) mmol/L Chloride 95 L (98-107) mmol/L Carbon Dioxide 32 H (22-30) mmol/L Anion Gap 15.3 H (5-15) MEQ/L BUN 15 (7-17) mg/dL Creatinine 1.23 H (0.52-1.04) mg/dL Estimated GFR 48.5 ML/MIN Glucose 143 H (74-106) mg/dL Calcium 9.8 (8.4-10.2) mg/dL Total Bilirubin 1.20 (0.2-1.3) mg/dL AST 172 H (14-36) U/L ALT 241 H (0-35) U/L Alkaline Phosphatase 162 H (38-126) U/L Serum Total Protein 7.8 (6.3-8.2) g/dL Albumin 4.6 (3.5-5.0) g/dL Amylase 2171 H (30-110) U/L Lipase 58906 H (23-300) U/L Urinalys Dipstick Clnc MAIN LAB Urine Color YELLOW (YELLOW) Urine Appearance SLIGHTLY CLOUDY (CLEAR) Urine pH 7.0 (5-6) Ur Specific [place] >=1.030 (1.005-1.025) POC Urine Protein Conf 100 (Negative) Urine Ketones TRACE (NEGATIVE) Urine Nitrite POSITIVE (NEGATIVE) Urine Bilirubin SMALL (NEGATIVE) Urine Urobilinogen 0.2 (0-1) mg/dL Urine Leukocytes SMALL (NEGATIVE) Urine WBC (Auto) 51-100 (0-5) /HPF Urine RBC (Auto) 3-5 (0-2) /HPF U Epithel Cells (Auto) RARE (FEW) /HPF Urine Bacteria (Auto) MODERATE (NEGATIVE) /HPF Urine RBC TRACE-INTACT (0-5) Hany/ul Urine Mucus (Auto) MANY (NEGATIVE) /HPF Ur Culture Indicated? YES Urine Glucose NEGATIVE (NEGATIVE) mg/dL Monoscreen (Negative) Influenza Type A Ag (NEGATIVE) Influenza Type B Ag (NEGATIVE) RSV (PCR) (Negative) SARS-CoV-2 (PCR) (NEGATIVE) Group A Strep Antibody (NEGATIVE) - Progress Progress: improved, pain not gone completely Counseled pt/family regarding: lab results, diagnosis, need for follow-up - Departure Departure Disposition: Home Clinical Impression: UTI (urinary tract infection) Condition: Stable Critical Care Time: No Referrals: VIKTOR CALHOUN MD [Primary Care Provider] - Follow up/PCP as directed Additional Instructions: Drink plenty of fluids. Take your antibiotics as prescribed. Follow-up with your primary care physician for further management. Prescriptions: Levofloxacin [Levaquin 500 MG Tablet] 500 mg PO DAILY #7 tablet
[2021-09-02] MEDS ORDERED: Sodium Chloride 0.9% 1000 ML 1,000 ML ONE ×2 (19:20→20:30)
[2021-09-02] MEDS ORDERED: PROTONIX 40 MG IV IV ONE (19:20)
[2021-09-02] MEDS ORDERED: Zofran 4 MG/2 ML VIAL ONE (19:20)
[2021-09-02] MEDS: PROTONIX 40 MG IV IV ONE (19:23)
[2021-09-02] MEDS: Zofran 4 MG/2 ML VIAL IV ONE (19:23)
[2021-09-02] MEDS: Sodium Chloride 0.9% 1000 ML 1,000 ML IV STA ×2 (19:23→20:34)
[2021-09-02 19:26] LABS: Absolute Neutrophil Ct (ANC) 8.24 x10^3/uL (1.4-6.9); Basophil (Absolute #) 0.03 x10^3/uL (0-0.4); Eosinophil % 1.1 % (0.00-5.0); Eosinophil (Absolute #) 0.11 x10^3/uL (0-0.5); Hematocrit 53.6 % (35-47); Hemoglobin 17.8 g/dL (12.0-16.0); Lymphocyte (Absolute #) 1.34 x10^3/uL (1.0-4.6); Mean Cell Volume 87.2 fL (78-100); Mean Corpuscular Hemoglobin 28.9 pg (26-32); Mean Corpuscular Hgb Concent. 33.2 g/dL (32-36); Mean Platelet Volume 9.1 fL (7.5-11.0); Monocyte (Absolute #) 0.53 x10^3/uL (0.0-1.3); Monocytes % 5.2 % (0.0-12.0); Neutrophil % 80.2 % (36.0-66.0); Platelet Count 305 x10^3/uL (150-450); Red Blood Count 6.15 x10^6/uL (4.1-5.4); Red Cell Distribution Width 13.1 % (11.5-14.0); White Blood Count 10.3 x10^3/uL (4.0-10.5)
[2021-09-02 19:37] LABS: ALBUMIN 4.6 g/dL (3.5-5.0); ANION GAP 15.3 MEQ/L (5-15); BILIRUBIN,TOTAL 1.2 mg/dL (0.2-1.3); Calcium 9.8 mg/dL (8.4-10.2); Creatinine 1 1.23 mg/dL (0.52-1.04); EST GLOMERULAR FILTRATION RATE 48.5 ML/MIN; Potassium 4.4 mmol/L (3.5-5.1); Total Protein 7.8 g/dL (6.3-8.2)
[2021-09-02 19:40] LABS: Bacteria MODERATE /HPF (NEGATIVE); Epithelial Cells RARE /HPF (FEW); Mucus MANY /HPF (NEGATIVE); WBC 51-100 /HPF (0-5)
[2021-09-02 19:42] LABS: Appearance SLIGHTLY CLOUDY (CLEAR); Bilirubin SMALL (NEGATIVE); Glucose NEGATIVE (NEGATIVE); Ketones TRACE (NEGATIVE); Nitrite POSITIVE (NEGATIVE); Protein,Urine Dip 100 (Negative); RBC TRACE-INTACT Ery/ul (0-5); Specific Gravity >=1.030 (1.005-1.025); Urine Cultured Indicated? YES; Urobilinogen 0.2 mg/dL (0-1)
[2021-09-02 19:43] LABS: Dipstick done @ ? MAIN LAB
[2021-09-02] MEDS ORDERED: ROCEPHIN 1 Gm-D5w 50 ml Bag** 1 G/50 ML IVPB IV ONE (20:30)
[2021-09-02] MEDS ORDERED: MORPHINE SULFATE 4 MG INJ ONE (20:30)
[2021-09-02] MEDS ORDERED: Levofloxacin 500 MG Tablet ONE (20:30)
[2021-09-02] MEDS: ROCEPHIN 1 Gm-D5w 50 ml Bag** 1 G/50 ML IVPB IV STA (20:35)
[2021-09-02] MEDS: Levofloxacin 500 MG Tablet PO ONE (20:35)
[2021-09-02] MEDS: MORPHINE SULFATE 4 MG INJ IV ONE (20:35)
[2021-09-02 20:39] LABS: INFLUENZA A NEGATIVE (NEGATIVE); INFLUENZA B NEGATIVE (NEGATIVE); RESPIRATORY SYNCTIAL VIRUS NEGATIVE (Negative); SARS-CoV-2 Xpert Express NEGATIVE (NEGATIVE)
[2021-09-02 21:19] VITALS: BP 124/87
[2021-09-02 22:04] VITALS: PULSE 87; O2SAT 94
[2021-09-02] MEDS ORDERED: CITROMA 296 ML ONE (22:13)
[2021-09-02] MEDS: CITROMA 296 ML PO ONE (22:14)
== END 2021-09-02 22:22 | disposition home or self-care (01) ==
LOC: ED 18:44
DX: N39.0 Urinary tract infection, site not specified (principal); R10.84 Generalized abdominal pain; M79.10 Myalgia, unspecified site; R11.2 Nausea with vomiting, unspecified; Z20.822 Contact with and (suspected) exposure to COVID-19
CPT/HCPCS: 0241U; 36000; 36415; 80053; 81015; 82150; 83690; 85025; 86308; 87040; 87086; 87651; 96374; 96375; 99284; J0696; J2270; J2405; A9270-GY

== ENCOUNTER 2021-11-07 15:08 | Emergency (ER) | payer OTHER ==
[2021-11-07] MEDS ORDERED: TYLENOL 325 MG PO ONE (15:52)
[2021-11-07] MEDS ORDERED: TYLENOL 325 MG ONE (16:25)
--- NOTE | 2021-11-07 16:35 | XRAY ---
Indication: Right rib pain following fall. Comparison: November 27, 2020 Portable chest demonstrates new bibasilar subsegmental atelectasis/scarring. Remaining heart and lungs unremarkable. Bony thorax intact again with old right posterior 6 rib fracture.
--- NOTE | 2021-11-07 16:35 | XRAY ---
Indication: Pain following fall. Comparison: None 2 view right ribs demonstrates old posterior 6 rib fracture. No other bony, articular, or soft tissue abnormalities. Chest reported separately.
--- NOTE | 2021-11-07 16:37 | XRAY ---
Indication: Pain following fall. Comparison: None 3 view right wrist obtained. No bony, articular, or soft tissue abnormalities.
--- NOTE | 2021-11-07 16:39 | XRAY ---
Indication: Bilateral hip pain following fall. Multiple contiguous axial images obtained through the pelvis with special attention to the osseous structures. Sagittal and coronal reformatted images obtained. Comparison: None No acute fracture, dislocation, or suspicious bony lesions. Left lesser trochanter demonstrates tiny heterotopic ossification either degenerative versus old injury. Visualized noncontrasted soft tissues are unremarkable. Visualized pelvis demonstrates hysterectomy and a few pelvic phleboliths. No free fluid/air. Impression: Negative CT pelvis.
--- NOTE | 2021-11-07 16:43 | ERPHSYRPT ---
- History of Present Illness Time Seen by Provider: 11/07/21 15:40 Source: patient Exam Limitations: no limitations Patient Subjective Stated Complaint: Patient rolled out of bed and hit a trunk next to her bed just a few hours prior to coming into the ED. She is c/o pain to her right wrist, right ribs, and bilateral hips. Triage Nursing Assessment: Patient is alert and oriented. CMS checks to right fingers WNL. Right radial pulse present. No SOB noted. No skin alterations noted to back, rib, or hip area. Physician History: Patient is a 56-year-old female presents to emergency department for evaluation of pain to both hips right ribs and right wrist. Patient states she was sleeping rolled off of her bed onto carpeted floor and wedged herself between a trunk on her bed. Injury occurred just prior to arrival. Pain described as an ache that is localized to the areas of involvement. The pain at the rib is at rib 6 7 and 8 laterally. Overlying soft tissue intact. No BHT or LOC. No neck pain. Cervical spine cleared clinically. Patient is conversant. Patient denies chest pain shortness of breath. No nausea vomiting or diaphoresis. No abdominal pain. Patient is ambulatory but uses her mother's walker because pain to both hips. Of note patient is currently transitioning and is on testosterone cypionate. Patient only wants Tylenol for pain control. Patient voices no other complaints or concerns at this time. Timing/Duration: today Severity: moderate Modifying Factors: Improves With: movement, acetaminophen Allergies/Adverse Reactions: hydromorphone Adverse Reaction (Verified 11/07/21 15:25) Vomiting vomiting Home Medications: Albuterol 2 puff IH Q6HPRN PRN 09/02/19 [History] Alendronate Sodium 70 mg [Fosamax 70 MG] 70 mg PO Q7D@0600 09/02/19 [History] Calcium Carbonate/Vitamin D3 [Calcium 600Mg-D3 400 Unit Sfgl] 1 each PO BID 09/02/19 [History] Diphenhydramine HCl 25 mg [Benadryl 25 mg Capsule] 25 mg PO Q4H PRN PRN 09/02/19 [History] Famotidine 20 mg [Pepcid 20 MG] 20 mg PO DAILY PRN PRN 09/02/19 [History] Hydroxyzine HCl 50 mg/ml [Vistaril 50 MG/ML] 50 mg IM TIDPRN PRN 09/02/19 [History] Multivitamin [Multivitamins] 1 each PO DAILY 09/02/19 [History] Plecanatide [Trulance] 3 mg PO DAILY 09/02/19 [History] Testosterone Cypionate [Depo-Testosterone] 200 mg IM WEEKLY 09/02/19 [History] Venlafaxine HCl ER 75 mg [Effexor XR 75 MG] 75 mg PO DAILY 09/02/19 [History] buPROPion HCL [Bupropion Xl] 150 mg PO DAILY 09/02/19 [History] clonazePAM [Clonazepam] 1 mg PO TID 09/02/19 [History] lamoTRIgine [Lamictal] 150 mg PO BID 09/02/19 [History] Hx Tetanus, Diphtheria Vaccination/Date Given: Yes Hx Influenza Vaccination/Date Given: No Hx Pneumococcal Vaccination/Date Given: No Immunizations Up to Date: Yes Travel Risk - International Travel Have you traveled outside of the country in past 3 weeks: No - Coronavirus Screening Are you exhibiting any of the following symptoms?: No Close contact with a COVID-19 positive Pt in past 14-21 Days: No - Vaccine Status Have you recieved a Covid-19 vaccination: No - Review of Systems Constitutional: No Symptoms, No Fever, No Chills Eyes: No Symptoms Ears, Nose, & Throat: No Symptoms Respiratory: No Symptoms, No Cough, No Dyspnea Cardiac: No Symptoms, No Chest Pain, No Edema, No Syncope Abdominal/Gastrointestinal: No Symptoms, No Abdominal Pain, No Nausea, No Vomiting, No Diarrhea Genitourinary Symptoms: No Symptoms, No Dysuria Musculoskeletal: No Symptoms, No Back Pain, No Neck Pain Skin: No Symptoms, No Rash Neurological: No Symptoms, No Dizziness, No Focal Weakness, No Sensory Changes Psychological: No Symptoms Endocrine: No Symptoms Hematologic/Lymphatic: No Symptoms Immunological/Allergic: No Symptoms All Other Systems: Reviewed and Negative - Past Medical History Pertinent Past Medical History: Yes Neurological History: No Pertinent History ENT History: No Pertinent History Cardiac History: No Pertinent History Respiratory History: Asthma Endocrine Medical History: No Pertinent History Musculoskeletal History: Fractures, Other GI Medical History: GERD History: No Pertinent History Psycho-Social History: Anxiety, Attention Deficit Disorder, Bipolar, Depression Female Reproductive Disorders: Cervical Cancer, Endometriosis Other Medical History: seasonal allergies, "weak bones" - Past Surgical History Past Surgical History: Yes Neuro Surgical History: No Pertinent History Cardiac: No Pertinent History Respiratory: No Pertinent History Gastrointestinal: Hernia Repair Genitourinary: No Pertinent History Musculoskeletal: No Pertinent History Female Surgical History: Hysterectomy, Tubal Ligation Other Surgical History: left breast lumpectomy - benign. colon polyps - benign. cryo surgery to cervix - stage 0 cervical cancer - Social History Smoking Status: Never smoker Exposure to second hand smoke: Yes Drug Use: none Patient Lives Alone: No - Nursing Vital Signs Nursing Vital Signs: Initial Vital Signs Temperature 97.5 F 11/07/21 15:33 Pulse Rate 96 H 11/07/21 15:33 Respiratory Rate 18 11/07/21 15:33 Blood Pressure 135/95 11/07/21 15:33 O2 Sat by Pulse Oximetry 96 11/07/21 15:33 Pain Scale Pain Intensity [] 10 Pain Intensity [] 10 Pain Intensity [] 10 Pain Intensity 7 - Physical Exam General Appearance: no apparent distress, alert Eye Exam: PERRL/EOMI, eyes nml inspection Ears, Nose, Throat Exam: normal ENT inspection, TMs normal, pharynx normal, moist mucous membranes Neck Exam: normal inspection, non-tender, supple, full range of motion Respiratory Exam: normal breath sounds, lungs clear, airway intact, other (Tenderness to palpation right ribs 6 7 and 8 overlying soft tissue intact. No signs of trauma.), No respiratory distress Cardiovascular Exam: regular rate/rhythm, normal heart sounds, normal peripheral pulses Gastrointestinal/Abdomen Exam: soft, normal bowel sounds, No tenderness, No mass Pelvic Exam: not done, other (Some tenderness to palpation at bilateral greater trochanters. No ecchymosis. No deformity. No swelling.) Back Exam: normal inspection, normal range of motion, No CVA tenderness, No vertebral tenderness Extremity Exam: normal inspection, normal range of motion, pelvis stable, other (Bilateral lower extremities neurovascular tact distally. Compartments are soft. Cap refill less than 2 seconds.) Neurologic Exam: alert, oriented x 3, cooperative, normal mood/affect, sensation nml, No motor deficits Skin Exam: normal color, warm, dry, No rash Lymphatic Exam: No adenopathy SpO2 Interpretation: normal SpO2: 96 O2 Delivery: Room Air - Course Nursing assessment & vital signs reviewed: Yes - Radiology Exams Wrist X-ray Interpretation: Teleradiologist Report (No fracture dislocations) Ribs X-ray Interpretation: Interpreted by me, Teleradiologist Report (Old posterior right rib fractures. No new acute fractures) Chest X-ray Interpretation: Teleradiologist Report (New bibasilar/subsegmental atele ctasis. Old right posterior rib fractures. Otherwise no acute findings) - CT Exams Pelvis CT Interpretation: Tele-radiologist Report (Negative CT pelvis) Ordered Tests: Active Orders 24 hr Category Date Time Status CHEST 1 VIEW (PORTABLE) Stat Exams 11/07/21 15:36 Completed PELVIS WITHOUT CONTRAST [CT] Stat Exams 11/07/21 15:36 Taken RIBS UNILATERAL Stat Exams 11/07/21 15:37 Completed WRIST (MIN 3 VIEWS) Stat Exams 11/07/21 15:44 Completed Medication Summary Discontinued Medications Generic Name Dose Route Start Last Admin Trade Name Shanita PRN Reason Stop Dose Admin Acetaminophen 975 mg 11/07/21 15:52 11/07/21 16:26 Acetaminophen 325 Mg Tablet PO 11/07/21 15:53 975 mg STAT ONE Administration Acetaminophen Confirm 11/07/21 16:25 Acetaminophen 325 Mg Tablet Administered 11/07/21 16:26 Dose 975 mg .ROUTE .STK-MED ONE - Progress Progress: improved Progress Note: Patient reassessed. Pain improved. Imaging studies negative. No fractures or dislocations observed. No indication for further work-up at this time. 11/07/21 16:49 No indication for additional work-up at this time. Will discharge home. Patient agrees to follow-up with primary care doctor within 48 hours for evaluation. Portions of this note were created with voice recognition technology. There may be grammatical, spelling, punctuation or sound alike errors 11/07/21 16:53 Patient understands that of right wrist pain does not resolve within a week's time she may require a repeat imaging study to reassess for fractures that may potentially be missed on today's x-ray. Patient placed in a right wrist splint for immobilization. 11/07/21 17:00 Counseled pt/family regarding: diagnosis, need for follow-up, rad results - Departure Departure Disposition: Home Clinical Impression: Fall, Contusion of rib on right side, Hip pain, Wrist sprain Condition: Stable Critical Care Time: No Referrals: VIKTOR CALHOUN MD [Primary Care Provider] - Follow up/PCP as directed Additional Instructions: Discharge/Care Plan NACHO YI was seen on 11/07/21 in the Emergency Room. The patient was counseled regarding Diagnosis,Lab results, Imaging studies, need for follow up and when to return to the Emergency Room. Prescriptions given: Discharge Note I have spoken with the patient and/or caregivers. I have explained the patient's condition, diagnosis and treatment plan based on the information available to me at this time. I have answered the patient's and/or caregiver's questions and addressed any concerns. The patient and/or caregivers have as good understanding of the patient's diagnosis, condition and treatment plan as can be expected at this point. The vital signs have been stable. The patient's condition is stable and appropriate for discharge from the emergency department. The patient will pursue further outpatient evaluation with the primary care physician or other designated or consulting physician as outlined in the discharge instructions. The patient and/or caregivers are agreeable to this plan of care and follow-up instructions have been explained in detail. The patient and/or caregivers have received these instruction. The patient/and or caregivers are aware that any significant change in condition or worsening of symptoms should prompt an immediate return to this or the closest emergency department or call 911.
[2021-11-07 17:09] VITALS: BP 134/76; PULSE 88; O2SAT 99
== END 2021-11-07 17:09 | disposition home or self-care (01) ==
LOC: ED 15:08
DX: S63.501A Unspecified sprain of right wrist, initial encounter (principal); S20.211A Contusion of right front wall of thorax, initial encounter; W06.XXXA Fall from bed, initial encounter; Y93.84 Activity, sleeping; Y92.003 Bedroom of unspecified non-institutional (private) residence as the place of occurrence of the external cause; M25.551 Pain in right hip; M25.552 Pain in left hip; R07.81 Pleurodynia; M25.531 Pain in right wrist; Z79.899 Other long term (current) drug therapy; Z28.310 Unvaccinated for COVID-19
CPT/HCPCS: 71045; 71100; 72192; 73110; 99283; L3908; A9270-GY

== ENCOUNTER 2021-12-01 03:29 | Emergency (ER) | payer OTHER ==
[2021-12-01] MEDS ORDERED: PROTONIX 40 MG IV IV ONE ×2 (03:46→04:21)
[2021-12-01] MEDS ORDERED: Reglan 10 MG/2 ML IV ONE (03:46)
[2021-12-01] MEDS ORDERED: MORPHINE SULFATE 4 MG INJ IV ONE (03:46)
--- NOTE | 2021-12-01 03:52 | ERPHSYRPT ---
<RENETTA ROSE - Last Filed: 12/01/21 06:21> - History of Present Illness Time Seen by Provider: 12/01/21 03:36 Historian: patient Exam Limitations: no limitations Patient Subjective Stated Complaint: pt states "I took medicine to make me poop around 5 o clock yesterday, it made my stomach cramp so bad and now its moved above my diaphragm." Triage Nursing Assessment: pt presents to ED thru [facility] ems, pt c/o of chest pain since last night rating pain 10/10, pt had 324 aspirin, 4 zofran, 2 nitros, pt has been taking testosterone for some time and states "I think I am at a higher chance of a heart attack." pt has hx of anxiety Physician History: 56-year-old female with history of anxiety, on testosterone was constipated and took laxative around 5 PM yesterday evening and since 7 PM started to have cramping in the lower abdomen and gradually moved to upper abdomen and later in the chest. Complaining of moderate to severe pain in the upper abdomen/retrosternal area/rib cage bilaterally sharp cramping without any significant aggravating or relieving factors. Reports having nausea but no vomiting. Also reports having shortness of breath. Denies any cough fever or chills. Patient received aspirin nitro in route to the ER with no relief at all. Timing/Duration: yesterday, gradual onset, worse Activities at Onset: rest Quality: sharpness Location: substernal Severity of Pain-Max: severe Severity of Pain-Current: severe Modifying Factors: Improves With: nothing Associated Symptoms: nausea, abdominal pain Prior Chest Pain/Cardiac Workup: no prior chest pain Nitro Today/Relief: 0.4 mg x 2, provided by EMS Aspirin Treatment Today: 81 mg x 4, provided by EMS Allergies/Adverse Reactions: hydromorphone Adverse Reaction (Verified 11/07/21 15:25) Vomiting vomiting Home Medications: Albuterol 2 puff IH Q6HPRN PRN 09/02/19 [History] Alendronate Sodium 70 mg [Fosamax 70 MG] 70 mg PO Q7D@0600 09/02/19 [History] Calcium Carbonate/Vitamin D3 [Calcium 600Mg-D3 400 Unit Sfgl] 1 each PO BID 09/02/19 [History] Diphenhydramine HCl 25 mg [Benadryl 25 mg Capsule] 25 mg PO Q4H PRN PRN 09/02/19 [History] Famotidine 20 mg [Pepcid 20 MG] 20 mg PO DAILY PRN PRN 09/02/19 [History] Hydroxyzine HCl 50 mg/ml [Vistaril 50 MG/ML] 50 mg IM TIDPRN PRN 09/02/19 [History] Multivitamin [Multivitamins] 1 each PO DAILY 09/02/19 [History] Plecanatide [Trulance] 3 mg PO DAILY 09/02/19 [History] Testosterone Cypionate [Depo-Testosterone] 200 mg IM WEEKLY 09/02/19 [History] Venlafaxine HCl ER 75 mg [Effexor XR 75 MG] 75 mg PO DAILY 09/02/19 [History] buPROPion HCL [Bupropion Xl] 150 mg PO DAILY 09/02/19 [History] Hx Tetanus, Diphtheria Vaccination/Date Given: Yes Hx Influenza Vaccination/Date Given: No Hx Pneumococcal Vaccination/Date Given: No Immunizations Up to Date: Yes Travel Risk - International Travel Have you traveled outside of the country in past 3 weeks: No - Coronavirus Screening Are you exhibiting any of the following symptoms?: No Close contact with a COVID-19 positive Pt in past 14-21 Days: No - Vaccine Status Have you recieved a Covid-19 vaccination: No - Review of Systems Constitutional: No Symptoms Eyes: No Symptoms Ears, Nose, & Throat: No Symptoms Respiratory: No Symptoms Cardiac: Chest Pain Abdominal/Gastrointestinal: Abdominal Pain, Nausea Genitourinary Symptoms: No Symptoms Musculoskeletal: No Symptoms Skin: No Symptoms Neurological: No Symptoms Psychological: No Symptoms Endocrine: No Symptoms Hematologic/Lymphatic: No Symptoms Immunological/Allergic: No Symptoms - Past Medical History Pertinent Past Medical History: Yes Neurological History: No Pertinent History ENT History: No Pertinent History Cardiac History: No Pertinent History Respiratory History: Asthma Endocrine Medical History: No Pertinent History Musculoskeletal History: Fractures, Other GI Medical History: GERD History: No Pertinent History Psycho-Social History: Anxiety, Attention Deficit Disorder, Bipolar, Depression Female Reproductive Disorders: Cervical Cancer, Endometriosis Other Medical History: seasonal allergies, "weak bones" - Past Surgical History Past Surgical History: Yes Neuro Surgical History: No Pertinent History Cardiac: No Pertinent History Respiratory: No Pertinent History Gastrointestinal: Hernia Repair Genitourinary: No Pertinent History Musculoskeletal: No Pertinent History Female Surgical History: Hysterectomy, Tubal Ligation Other Surgical History: left breast lumpectomy - benign. colon polyps - benign. cryo surgery to cervix - stage 0 cervical cancer - Social History Smoking Status: Never smoker Exposure to second hand smoke: Yes Drug Use: none Patient Lives Alone: No - Physical Exam General Appearance: no apparent distress, alert Eye Exam: PERRL/EOMI Ears, Nose, Throat Exam: normal ENT inspection, TMs normal, pharynx normal, moist mucous membranes Neck Exam: normal inspection, non-tender, supple, full range of motion Respiratory Exam: normal breath sounds, lungs clear Cardiovascular Exam: regular rate/rhythm, normal heart sounds Gastrointestinal/Abdomen Exam: normal bowel sounds, tenderness (Upper abdomen bilaterally), guarding Back Exam: normal inspection, normal range of motion Extremity Exam: normal inspection, normal range of motion Neurologic Exam: alert, oriented x 3, cooperative Skin Exam: normal color SpO2 Interpretation: normal SpO2: 97 O2 Delivery: Nasal Cannula - Progress Air Movement: good Progress Note: 12/01/21 06:13 12/01/21 06:17 Blood Culture(s) Obtained: No Counseled pt/family regarding: lab results, diagnosis, need for follow-up, rad results - Departure Clinical Impression: Pancreatitis Condition: Stable Critical Care Time: No <JONNY MONTERO - Last Filed: 12/01/21 08:36> - Nursing Vital Signs Nursing Vital Signs: Initial Vital Signs Temperature 97.1 F 12/01/21 03:33 Pulse Rate 105 H 12/01/21 03:33 Respiratory Rate 18 12/01/21 03:33 Blood Pressure 111/72 12/01/21 03:33 O2 Sat by Pulse Oximetry 97 12/01/21 03:33 Pain Scale Pain Intensity 4 Ordered Tests: Active Orders 24 hr Category Date Time Status EKG-ER Only STAT Care 12/01/21 03:46 Active IV Insertion STAT Care 12/01/21 03:46 Active NPO (ED) STAT Care 12/01/21 03:46 Active ABDOMEN AND PELVIS W CONTRAST [CT] Stat Exams 12/01/21 03:46 Completed CHEST WITH CONTRAST [CT] Stat Exams 12/01/21 03:47 Completed CBC W DIFF Stat Lab 12/01/21 04:16 Completed CMP Stat Lab 12/01/21 04:16 Completed LIPASE Stat Lab 12/01/21 04:16 Completed Lactic Acid Stat Lab 12/01/21 04:10 Completed Lactic Acid Stat Lab 12/01/21 06:19 Completed MAGNESIUM Stat Lab 12/01/21 04:16 Completed NT PRO BNP Routine Lab 12/01/21 04:16 Completed TROPONIN Q4H Lab 12/01/21 04:16 Completed TROPONIN Q4H Lab 12/01/21 08:28 Received TROPONIN Q4H Lab 12/01/21 12:00 Ordered UA W/RFX CULTURE Stat Lab 12/01/21 Ordered Medication Summary Discontinued Medications Generic Name Dose Route Start Last Admin Trade Name Freq PRN Reason Stop Dose Admin Sodium Chloride 1,000 mls @ 999 mls/hr 12/01/21 06:17 12/01/21 07:24 Sodium Chloride 0.9% 1000 Ml IV 12/01/21 07:17 Infused .Q1H1M STA Infusion Sodium Chloride Confirm 12/01/21 06:19 Sodium Chloride 0.9% 1000 Ml Administered 12/01/21 06:20 Dose 1,000 mls @ ud .ROUTE .STK-MED ONE Metoclopramide HCl 10 mg 12/01/21 03:46 12/01/21 04:23 Metoclopramide Hcl 10 Mg/2 Ml Vial IV 12/01/21 03:47 10 mg STAT ONE Administration Metoclopramide HCl Confirm 12/01/21 04:22 Metoclopramide Hcl 10 Mg/2 Ml Vial Administered 12/01/21 04:23 Dose 10 mg .ROUTE .STK-MED ONE Morphine Sulfate 4 mg 12/01/21 03:46 12/01/21 04:24 Morphine Sulfate 4 Mg/Ml Injection IV 12/01/21 03:47 4 mg STAT ONE Administration Morphine Sulfate Confirm 12/01/21 04:22 Morphine Sulfate 4 Mg/Ml Injection Administered 12/01/21 04:23 Dose 4 mg .ROUTE .STK-MED ONE Pantoprazole Sodium 40 mg 12/01/21 03:46 12/01/21 04:23 Pantoprazole 40 Mg Vial IV 12/01/21 03:47 40 mg STAT ONE Administration Pantoprazole Sodium Confirm 12/01/21 04:21 Pantoprazole 40 Mg Vial Administered 12/01/21 04:22 Dose 40 mg IV .K-MED ONE Lab/Rad Data: Laboratory Result Diagrams 12/01/21 04:16 12/01/21 04:16 Laboratory Results 12/01/21 12/01/21 12/01/21 Range/Units 06:19 04:16 04:16 WBC (4.0-10.5) x10^3/uL RBC (4.1-5.4) x10^6/uL Hgb (12.0-16.0) g/dL Hct (35-47) % MCV (78-100) fL MCH (26-32) pg MCHC (32-36) g/dL RDW (11.5-14.0) % Plt Count (150-450) x10^3/uL MPV (7.5-11.0) fL Gran % (36.0-66.0) % Immature Gran % (Auto) (0.00-0.4) % Nucleat RBC Rel Count (0.00-0.1) % Eos # (Auto) (0-0.5) x10^3/uL Immature Gran # (Auto) (0.00-0.03) x10^3u/L Absolute Lymphs (auto) (1.0-4.6) x10^3/uL Absolute Monos (auto) (0.0-1.3) x10^3/uL Absolute Nucleated RBC (0.00-0.01) x10^3u/L Lymphocytes % (24.0-44.0) % Monocytes % (0.0-12.0) % Eosinophils % (0.00-5.0) % Basophils % (0.0-0.4) % Absolute Granulocytes (1.4-6.9) x10^3/uL Basophils # (0-0.4) x10^3/uL Sodium 135 L (137-145) mmol/L Potassium 3.9 (3.5-5.1) mmol/L Chloride 98 (98-107) mmol/L Carbon Dioxide 26 (22-30) mmol/L Anion Gap 14.3 (5-15) MEQ/L BUN 12 (7-17) mg/dL Creatinine 1.04 (0.52-1.04) mg/dL Estimated GFR 58.7 ML/MIN Glucose 123 H (74-106) mg/dL Lactic Acid 1.2 (0.4-2.0) Calcium 9.5 (8.4-10.2) mg/dL Magnesium 2.0 (1.6-2.3) mg/dL Total Bilirubin 2.60 H (0.2-1.3) mg/dL AST 295 H (14-36) U/L ALT 264 H (0-35) U/L Alkaline Phosphatase 158 H (38-126) U/L Troponin I < 0.012 (0.000-0.034) ng/mL NT-Pro-B Natriuret Pep 31.8 (0-900) pg/mL Serum Total Protein 7.4 (6.3-8.2) g/dL Albumin 4.5 (3.5-5.0) g/dL Lipase 31184 H (23-300) U/L 12/01/21 12/01/21 Range/Units 04:16 04:10 WBC 10.7 H (4.0-10.5) x10^3/uL RBC 5.61 H (4.1-5.4) x10^6/uL Hgb 15.8 (12.0-16.0) g/dL Hct 47.9 H (35-47) % MCV 85.4 (78-100) fL MCH 28.2 (26-32) pg MCHC 33.0 (32-36) g/dL RDW 13.8 (11.5-14.0) % Plt Count 319 (150-450) x10^3/uL MPV 8.9 (7.5-11.0) fL Gran % 77.5 H (36.0-66.0) % Immature Gran % (Auto) 0.5 H (0.00-0.4) % Nucleat RBC Rel Count 0.0 (0.00-0.1) % Eos # (Auto) 0.10 (0-0.5) x10^3/uL Immature Gran # (Auto) 0.05 H (0.00-0.03) x10^3u/L Absolute Lymphs (auto) 1.48 (1.0-4.6) x10^3/uL Absolute Monos (auto) 0.72 (0.0-1.3) x10^3/uL Absolute Nucleated RBC 0.00 (0.00-0.01) x10^3u/L Lymphocytes % 13.9 L (24.0-44.0) % Monocytes % 6.8 (0.0-12.0) % Eosinophils % 0.9 (0.00-5.0) % Basophils % 0.4 (0.0-0.4) % Absolute Granulocytes 8.26 H (1.4-6.9) x10^3/uL Basophils # 0.04 (0-0.4) x10^3/uL Sodium (137-145) mmol/L Potassium (3.5-5.1) mmol/L Chloride (98-107) mmol/L Carbon Dioxide (22-30) mmol/L Anion Gap (5-15) MEQ/L BUN (7-17) mg/dL Creatinine (0.52-1.04) mg/dL Estimated GFR ML/MIN Glucose (74-106) mg/dL Lactic Acid 2.4 H (0.4-2.0) Calcium (8.4-10.2) mg/dL Magnesium (1.6-2.3) mg/dL Total Bilirubin (0.2-1.3) mg/dL AST (14-36) U/L ALT (0-35) U/L Alkaline Phosphatase (38-126) U/L Troponin I (0.000-0.034) ng/mL NT-Pro-B Natriuret Pep (0-900) pg/mL Serum Total Protein (6.3-8.2) g/dL Albumin (3.5-5.0) g/dL Lipase (23-300) U/L - Progress Progress Note: 12/01/21 08:31 Assumed care of pt at 7:00AM shift change. Pt stable and resting comfortably. Pt accepted by Dr. Garvey at [facility]. [facility] unable to accept pt. 12/01/21 08:35 - Departure Departure Disposition: Transfer
[2021-12-01] MEDS ORDERED: Reglan 10 MG/2 ML ONE (04:22)
[2021-12-01] MEDS ORDERED: MORPHINE SULFATE 4 MG INJ ONE (04:22)
[2021-12-01 04:36] LABS: Absolute Neutrophil Ct (ANC) 8.26 x10^3/uL (1.4-6.9); Basophil (Absolute #) 0.04 x10^3/uL (0-0.4); Eosinophil % 0.9 % (0.00-5.0); Hematocrit 47.9 % (35-47); Hemoglobin 15.8 g/dL (12.0-16.0); Lymphocyte (Absolute #) 1.48 x10^3/uL (1.0-4.6); Lymphocytes % 13.9 % (24.0-44.0); Mean Cell Volume 85.4 fL (78-100); Mean Corpuscular Hemoglobin 28.2 pg (26-32); Mean Platelet Volume 8.9 fL (7.5-11.0); Monocyte (Absolute #) 0.72 x10^3/uL (0.0-1.3); Monocytes % 6.8 % (0.0-12.0); Neutrophil % 77.5 % (36.0-66.0); Platelet Count 319 x10^3/uL (150-450); Red Blood Count 5.61 x10^6/uL (4.1-5.4); Red Cell Distribution Width 13.8 % (11.5-14.0); White Blood Count 10.7 x10^3/uL (4.0-10.5)
[2021-12-01 04:38] LABS: ALBUMIN 4.5 g/dL (3.5-5.0); ANION GAP 14.3 MEQ/L (5-15); BILIRUBIN,TOTAL 2.6 mg/dL (0.2-1.3); Calcium 9.5 mg/dL (8.4-10.2); Creatinine 1 1.04 mg/dL (0.52-1.04); EST GLOMERULAR FILTRATION RATE 58.7 ML/MIN; Potassium 3.9 mmol/L (3.5-5.1); Total Protein 7.4 g/dL (6.3-8.2)
[2021-12-01 04:49] LABS: NT PRO BNP 31.8 pg/mL (0-900); TROPONIN < 0.012 ng/mL (0.000-0.034)
[2021-12-01] MEDS ORDERED: Sodium Chloride 0.9% 1000 ML 1,000 ML IV STA (06:17)
[2021-12-01] MEDS ORDERED: Sodium Chloride 0.9% 1000 ML 1,000 ML ONE (06:19)
--- NOTE | 2021-12-01 08:01 | XRAY ---
Indication: Chest pain, short of breath, and nausea. Bilateral rib pain. Multiple contiguous axial images obtained through the chest using 100 cc Isovue-370 contrast and PE protocol. Comparison: None Good opacification of the pulmonary arteries to include the lobar and segmental branches. Mild respiration artifact limits evaluation for pulmonary embolus. No obvious pulmonary embolus. Heart not enlarged. Aorta is normal in course and caliber. Tiny distal paraesophageal calcified node. No pathologic mediastinal/hilar lymphadenopathy. Lungs demonstrates mild bibasilar subsegmental atelectasis/scarring. No suspicious pulmonary mass, infiltrate, effusion, or pneumothorax. Bony thorax intact. CT abdomen/pelvis reported separately. Impression: 1. Mild respiration artifact. 2. No pulmonary embolus or acute cardiopulmonary abnormalities. Comment: Preliminary interpretation made by [facility]. No critical discrepancy.
--- NOTE | 2021-12-01 08:05 | XRAY ---
Indication: Chest pain, short of breath, and nausea. Bilateral rib pain. Multiple contiguous axial images obtained through the abdomen and pelvis using 100 cc Isovue-370 contrast. Comparison: None CT chest reported separately. Stomach is fluid distended. Noncontrasted stomach and bowel loops appear nonobstructed with normal appendix. Several midabdomen small bowel loops are mildly fluid distended with synchronous fluid leveling favoring ileus. Pancreas appears diffusely enlarged with mild peripancreatic stranding favoring pancreatitis. Tiny free fluid presumed reactive but no walled off fluid collection or free air. Diffuse fatty liver and mild distended gallbladder. Remaining liver, gallbladder, spleen, adrenal glands, kidneys, ureters, bladder, and aorta are unremarkable. No pathologic retroperitoneal lymphadenopathy. Osseous structures intact. Impression: 1. CT findings favoring acute pancreatitis with mild reactive small bowel ileus. 2. Distended gallbladder. Sonogram may yield further information if clinically warranted. 3. Incidental fatty liver. Comment: Preliminary interpretation made by [facility]. No critical discrepancy.
[2021-12-01] MEDS ORDERED: Zofran 4 MG/2 ML VIAL IV ONE (08:34)
[2021-12-01] MEDS ORDERED: SUBLIMAZE 100 MCG/2 ML IV ONE (08:34)
[2021-12-01] MEDS ORDERED: Zofran 4 MG/2 ML VIAL ONE (08:38)
[2021-12-01] MEDS ORDERED: SUBLIMAZE 100 MCG/2 ML ONE (08:38)
[2021-12-01 12:05] VITALS: O2SAT 94
[2021-12-01 12:06] VITALS: BP 130/70; PULSE 74
== END 2021-12-01 11:50 | disposition short-term general hospital (02) ==
LOC: ED 03:29
DX: K85.90 Acute pancreatitis without necrosis or infection, unspecified (principal); R07.9 Chest pain, unspecified; R10.10 Upper abdominal pain, unspecified; R11.0 Nausea; R06.02 Shortness of breath; Z79.899 Other long term (current) drug therapy; Z28.310 Unvaccinated for COVID-19
CPT/HCPCS: 36000; 36415; 71260; 74177; 80053; 83605; 83690; 83735; 83880; 84484; 85025; 93005; 96374; 96375; 99285; J2270; J2405; J3010